=== PATIENT | male | born 1955 | race Caucasian/White ===

== ENCOUNTER → 2017-12-21 | Outpatient (CLI) | payer BC | LOC: BMCIMAGING 08:16 | PROVIDERS: ATTEND Physician Assistant | DX: M22.8X2 Other disorders of patella, left knee (principal) ==

== ENCOUNTER → 2018-07-06 | Outpatient (CLI) | payer BC | LOC: BMCIMAGING 16:27 | PROVIDERS: ATTEND Physician Assistant | DX: M22.2X1 Patellofemoral disorders, right knee (principal) ==

== ENCOUNTER 2018-09-08 13:56 | Inpatient (IN) | payer BC ==
--- NOTE | 2018-09-08 15:05 | EDPHY ---
H & P Time Seen by Provider: 09/08/18 15:04 HPI/ROS: CHIEF COMPLAINT: I feel terrible HISTORY OF PRESENT ILLNESS: Patient had urethral stricture repair 3 weeks ago [facility], still has a Cristina catheter. He is trying to get back to his normal activities and this past week on Monday wore a leg bag for about 6 hr at a social function. Over the last 24 hr he has been very restless, woke up today with soreness in his lower back in both hips radiating to both legs. He says he"feels terrible "and right now says he feels hot like he has a fever. Urine is slightly darker in color. Symptoms moderate to severe. Not associated with sore throat or headache, vomiting or diarrhea. He does feel like his urine isn't draining completely into the catheter. REVIEW OF SYSTEMS: Eye: no change in vision ENT: no sore throat Cardiac: no chest pain or syncope Pulmonary: Not short of breath, a little bit of a residual cough from a cold from 3 weeks ago. Abdomen: no vomiting, diarrhea, abdominal pain Musculoskeletal: no back pain Skin: no rash Neuro: no headache Constitutional: HPI : HPI A comprehensive 10 point review of systems is otherwise negative aside from elements mentioned in the history of present illness. PAST MEDICAL HISTORY: Urethral stricture repair, hypertension, nonobstructive coronary disease, GERD Social history: Nonsmoker General Appearance: Alert and conversant, cooperative. Eyes: No scleral icterus. ENT, Mouth: Normal mucous membranes. Respiratory: Normal respiratory effort, breath sounds equal, lungs are clear to auscultation. Cardiovascular: Regular rate and rhythm. Tachycardic. Gastrointestinal: Abdomen is soft and non tender. No suprapubic tenderness. Catheter in place. Neurological: Alert, face symmetric, normal motor and sensory in extremities. Skin: Warm and dry, no rashes. No zoster. Musculoskeletal: Has some mild bilateral CVA tenderness. Compartments in both legs are soft. Psychiatric: Not agitated. Emergency Department course/MDM: Patient's urinalysis reviewed has pyuria and bacteriuria. Likely UTI, catheter associated after surgery 3 weeks ago. Urine culture, IV fluids for heart rate 108, IV antibiotics, hospitalist admission. Bladder scan shows his catheter is functioning, bladder is drained. 1612: SIRS criteria but not severe sepsis. Smoking Status: Never smoked Constitutional: Initial Vital Signs Temperature (C) 36.9 C 09/08/18 14:01 Heart Rate 108 H 09/08/18 14:01 Respiratory Rate 18 09/08/18 14:01 Blood Pressure 202/92 H 09/08/18 14:01 O2 Sat (%) 95 09/08/18 14:01 O2 Delivery Mode Room Air Allergies/Adverse Reactions: No Known Allergies Allergy (Verified 11/03/16 11:16) Home Medications: Medication Instructions Recorded Lisinopril [Zestril 10 mg (*)] 30 mg PO DAILY 11/03/16 Omeprazole 20 mg PO DAILY 11/03/16 Simvastatin [Zocor] 20 mg PO HS 11/03/16 Acetaminophen [Tylenol 325mg (*)] 650 mg PO Q6 PRN 09/08/18 Aspirin [Aspirin 81mg (*)] 81 mg PO DAILY 09/08/18 Ibuprofen [Motrin (*)] 400 mg PO Q6 PRN 09/08/18 LORazepam [Ativan (*)] 0.5 mg PO DAILY PRN 09/08/18 Metoprolol Succinate Xr [Toprol Xl 25 mg PO HS 09/08/18 25 mg (*)] Multivitamins [Multivitamin (*)] 1 tab PO DAILY 09/08/18 Oxybutynin Chloride [Ditropan 5mg 5 mg PO TID 09/08/18 (RX)] Tamsulosin HCl [Flomax 0.4 MG (*)] 0.4 mg PO HS 09/08/18 Medical Decision Making Differential Diagnosis: Differential considered including but not limited to UTI, rhabdomyolysis, viral syndrome, vascular problem Consult/Admit Bed Type: [place] [address] - Data Points Laboratory Results: 09/08/18 14:05 Urine Color YELLOW Urine Appearance MODERATELY TURBID Urine pH 5.0 (5.0-7.5) Ur Specific [place] 1.014 (1.002-1.030) Urine Protein 1+ H (NEGATIVE) Urine Ketones NEGATIVE (NEGATIVE) Urine Blood 3+ H (NEGATIVE) Urine Nitrate POSITIVE H (NEGATIVE) Urine Bilirubin NEGATIVE (NEGATIVE) Urine Urobilinogen NEGATIVE EU EU (0.2-1.0) Ur Leukocyte Esterase 3+ H (NEGATIVE) Urine RBC 50-182 /hpf H /hpf (0-3) Urine WBC 50-182 /hpf H /hpf (0-3) Ur Epithelial Cells NONE SEEN /lpf /lpf (NONE-1+) Urine Bacteria 2+ /hpf H /hpf (NONE SEEN) Urine Mucus TRACE /lpf /lpf (NONE-1+) Urine Glucose NEGATIVE (NEGATIVE) Medications Given: Acetaminophen (Tylenol) 650 mg PO Q4HRS PRN PRN Reason: Pain, Mild/Fever, Can Take PO Stop: 03/07/19 16:26 Last Admin: 09/08/18 16:58 Dose: 650 mg Vancomycin/Sodium Chloride (Vancomycin 1 Gm (Premix)) 250 mls @ 250 mls/hr IV Q12H JORDAN PRN Reason: Protocol Stop: 10/08/18 16:29 Last Admin: 09/08/18 16:59 Dose: 250 mls Sodium Chloride (Ns) 1,000 mls @ 125 mls/hr IV CONT JORDAN Stop: 09/09/18 00:29 Last Admin: 09/08/18 16:59 Dose: 1,000 mls Oxycodone HCl (Oxycodone Ir) 5 - 10 mg PO Q3HRS PRN PRN Reason: Pain, Severe Able to Take PO Stop: 09/18/18 16:26 Last Admin: 09/08/18 18:06 Dose: 5 mg Discontinued Medications Ceftriaxone Sodium/Dextrose (Rocephin 1 Gm (Premix)) 50 mls @ 100 mls/hr IV EDNOW ONE PRN Reason: Protocol Stop: 09/08/18 15:50 Last Admin: 09/08/18 15:46 Dose: 50 mls Sodium Chloride (Ns) 2,800 mls @ 5,600 mls/hr 30 ml/kg infuse over 30 min ( 2800 ml) IV EDNOW ONE PRN Reason: Protocol Stop: 09/08/18 15:50 Last Admin: 09/08/18 15:45 Dose: 2,800 mls Lorazepam (Ativan Injection) 1 mg IVP EDNOW ONE Stop: 09/08/18 15:48 Last Admin: 09/08/18 15:47 Dose: 1 mg Departure - Departure Disposition: [facility] Inpatient Acute Clinical Impression: Urinary tract infection Qualifiers: Urinary tract infection type: catheter-associated UTI Indwelling urinary catheter type: indwelling urethral catheter Encounter type: initial encounter Qualified Code(s): T83.511A - Infection and inflammatory reaction due to indwelling urethral catheter, initial encounter Condition: Good
[2018-09-08] MEDS ORDERED: NS 2,800 ML IV ONE (15:21)
[2018-09-08] MEDS ORDERED: LORazepam 2 MG/ML INJ ONE (15:43)
[2018-09-08] MEDS ORDERED: LORazepam 2 MG/ML INJ IVP ONE (15:47)
[2018-09-08 15:54] LABS: PLATELET COUNT 293 10^3/uL (150-400)
[2018-09-08 16:01] LABS: INR 0.98 (0.83-1.16); PROTIME(PATIENT) 13.2 SEC (12.0-15.0)
[2018-09-08 16:27] LABS: CREATINE KINASE 84 IU/L (0-224)
[2018-09-08] MEDS ORDERED: TEMAZEPAM 15 MG CAP PO PRN (16:27)
[2018-09-08] MEDS ORDERED: ONDANSETRON 4 MG/2 ML VIAL IVP PRN (16:27)
[2018-09-08] MEDS ORDERED: oxyCODONE IR 5 MG TAB PO PRN (16:27)
[2018-09-08] MEDS ORDERED: ONDANSETRON DISINTEGRATING 4 MG TAB PO PRN (16:27)
[2018-09-08] MEDS ORDERED: ACETAMINOPHEN 325 MG TAB PO PRN (16:29)
[2018-09-08] MEDS ORDERED: LORazepam 0.5 MG TAB PO PRN (16:29)
[2018-09-08] MEDS ORDERED: NS 1,000 ML IV SCH (16:30)
[2018-09-08] MEDS: ACETAMINOPHEN 325 MG TAB PO PRN ×2 (16:58→21:01)
[2018-09-08] MEDS: VANCOMYCIN HCL/NORMAL SALINE 250 ML IV SCH (16:59)
--- NOTE | 2018-09-08 18:11 | GHP ---
DATE OF ADMISSION: 09/08/2018 The patient is a pleasant 63-year-old gentleman with hypertension and hyperlipidemia, who had a urethral stricture repair at [facility] on August 17, which was about 3 weeks ago. He has had an indwelling Cristina since. It sounds like this was a fairly invasive procedure with a perineal incision. He has been doing reasonably well since surgery, and this week he noticed more discomfort getting worse throughout the week with some back pain. This morning he woke up just with malaise and weakness and achiness all over. He was not febrile. He has been taking scheduled Tylenol and ibuprofen. He has noted some purulence around his urethra. His scrotum is uncomfortable, but has not gotten worse. He has noticed no foul smelling drainage in his underwear. No drainage from his scrotal incision. He is concerned that his catheter is not draining completely. He had a bladder scan in the emergency department that demonstrated complete emptying. Earlier in the week, he wore a leg bag for about 6 hours at a social function and has been feeling poorly since. REVIEW OF SYSTEMS: Complete 10-point review of systems conducted, negative except as noted in the HPI. PAST MEDICAL HISTORY: 1. Urethral stricture repair (urethral stricture as a result of a 24-Maced[place] Cristina placed at some point as part of a urologic workup). 2. Hypertension. 3. Nonobstructive coronary disease. 4. GERD. SOCIAL HISTORY: No tobacco. 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 Lives in [place]. present at the bedside. FAMILY HISTORY: Notable for prostate problems in his brothers and father. ALLERGIES: No known drug allergies. HOME MEDICATIONS: Ibuprofen, Tylenol, aspirin, lisinopril, lorazepam once daily , Toprol-XL, multivitamin, omeprazole, oxybutynin, simvastatin, tamsulosin. PHYSICAL EXAMINATION: VITAL SIGNS: Temp 37, blood pressure 134/72, pulse 91, breathing 16 times a minute, 96% on room air. GENERAL: No acute distress. HEENT: Sclerae are anicteric. Oropharynx is clear. Mucous membranes are moist. NECK: Supple without lymphadenopathy or JVD. LUNGS: Clear to auscultation bilaterally. HEART: S1, S2. ABDOMEN: Soft, nontender, nondistended. GENITOURINARY: He has a small Cristina in his urethra. There is some purulence around it. His scrotal and perineal incision is clean, dry, and intact without fluctuance, without drainage, and without erythema or odor. EXTREMITIES: His lower extremities are without edema. Calves are nontender. SKIN: Without rash. NEUROLOGIC: Nonfocal. Sodium 135, potassium 4.7, chloride 101, bicarb 24, BUN 18, creatinine 1.0, glucose 102. CK is 84. UA shows 3+ leukocyte esterase, 50-182 red cells and white cells. Venous lactate is normal at 1.1. Coags are normal. White count is 18 with a left shift, hematocrit 45, platelets are 293,000. There is no imaging. I have discussed the case with Dr. Ghulam Feldman. ASSESSMENT/PLAN: A 63-year-old gentleman with catheter-associated urinary tract infection from urethral stricture surgery. 1. Urinary tract infection. The patient has an indwelling catheter. Typically , it would be appropriate to remove, but it is definitely not appropriate to do so in this case. He has followup with his urologist in 3 days for a scheduled catheter removal. The plan will be to treat through it. We will give him ceftriaxone. Given his indwelling Cristina, I will add vancomycin. I have considered resistant gram negative. He was in the hospital only overnight and has had limited interaction with the healthcare system, so will not broaden to pseudomonal or resistant gram-negative coverage at this time. 2. Sepsis, leukocytosis. Source of infectious symptoms. As above. 3. Recent urologic surgery. The patient does not appear to have a wound infection. Will follow. I will notify [facility], urology division, that the patient is here. 4. Hypertension. Continue his beta jay. Hold his angiotensin-converting enzyme inhibitor. 5. Pain. As-needed oxycodone. 6. Prophylaxis. Low-molecular heparin. 7. Disposition. Inpatient status. /[id number]/MODL MTDD
[2018-09-08] MEDS: METOPROLOL SUCCINATE XR 25 MG TAB PO SCH (21:02)
[2018-09-08] MEDS: OXYBUTYNIN CHLORIDE 5 MG TAB PO SCH (21:02)
[2018-09-08] MEDS: ATORVASTATIN CALCIUM 10 MG TAB PO SCH (21:02)
[2018-09-08] MEDS: TAMSULOSIN HCL 0.4 MG CAP PO SCH (21:02)
[2018-09-08] MEDS: LORazepam 0.5 MG TAB PO PRN (21:04)
[2018-09-08] MEDS: IBUPROFEN 200 MG TAB PO PRN (21:52)
[2018-09-09] MEDS: IBUPROFEN 200 MG TAB PO PRN ×3 (01:26→20:28)
[2018-09-09] MEDS: VANCOMYCIN HCL/NORMAL SALINE 250 ML IV SCH ×2 (04:02→16:49)
[2018-09-09 05:14] LABS: PLATELET COUNT 233 10^3/uL (150-400)
--- NOTE | 2018-09-09 07:11 | PDMN ---
Medical Necessity Medical necessity: MCG: UTI M300 A-2 days: recent ureteral stricture repair- indwelling catheter, now with malaise, weakness , achiness, purulence around urethra, back pain, also with leukocytosis, HTN, anticipate > 2 MN ongoing med nec care further monitoring and tx
[2018-09-09] MEDS: PANTOPRAZOLE SODIUM 40 MG TAB PO SCH (08:31)
[2018-09-09] MEDS: ASPIRIN 81 MG CHEWABLE TAB PO SCH (08:31)
[2018-09-09] MEDS: MULTIVITAMINS 1 EACH TAB PO SCH (08:31)
[2018-09-09] MEDS: ACETAMINOPHEN 325 MG TAB PO PRN ×3 (08:31→21:54)
[2018-09-09] MEDS: OXYBUTYNIN CHLORIDE 5 MG TAB PO SCH ×3 (08:31→20:28)
[2018-09-09] MEDS: ENOXAPARIN 40 MG/0.4 ML SYR SC SCH (08:31)
--- NOTE | 2018-09-09 09:36 | ASMTCMCOM ---
CM Note CM Note Notes: Patient admitted via ED with malaise. S/P urethral stricture repair 3 weeks ago. Admitted for signs of sepsis. Normally lives independent with his . CM to follow for needs. Plan: TBD Date Signed: 09/09/2018 09:35 AM Electronically Signed By:Rohini Raygoza RN
[2018-09-09] MEDS ORDERED: guaiFENesin/CODEINE PHOS 10 ML UDCUP PO ONE (18:08)
[2018-09-09] MEDS: ATORVASTATIN CALCIUM 10 MG TAB PO SCH (20:28)
[2018-09-09] MEDS: BENZONATATE 100 MG CAP PO PRN (20:28)
[2018-09-09] MEDS: METOPROLOL SUCCINATE XR 25 MG TAB PO SCH (20:28)
[2018-09-09] MEDS: TAMSULOSIN HCL 0.4 MG CAP PO SCH (20:28)
[2018-09-10] MEDS: ACETAMINOPHEN 325 MG TAB PO PRN ×3 (03:14→21:38)
[2018-09-10 04:10] LABS: PLATELET COUNT 214 10^3/uL (150-400)
[2018-09-10] MEDS: VANCOMYCIN HCL/NORMAL SALINE 250 ML IV SCH (04:34)
--- NOTE | 2018-09-10 05:08 | SOAPPROG ---
SOAP Progress Note Assessment/Plan: 1. sepsis, presumed urinary source s/p surgery [address] [facility], green in place -vanco/rocephin -bd cx pending -u cx GNR -102 temp last nt -wbc slightly trending down -if temp spikes again, will need imaging and urology consult -he has seen Dr Joshua bingham and requests to NOT see her here -discussed possible transfer to [facility] as inpt so his surgeon could see him , he declines at this time 2. HTN -home meds except holding KENDRICK I 3. Hyperlipidemia -home med 4. Diarrhea, on precautions empirically bc of recent inpt admission/abx use -c diff testing ordered Dispo- >48 hours as still febrile and may need further eval including surgical eval DVT prophy lovenox PCP Dr Marichuy Salgado Full code 09/10/18 05:15 Subjective: ROUNDING NOTE 09/09/2018, 130 PM Family in room. Is uncomfortable, soreness in scrotum, hard to sit down. [place] earlier in day, now feeling achy. No n/v/CP. Had a few episodes of diarrhea, c diff ordered, but no further diarrhea/BM to test. Anxious to discharge as has appt with surgeon at [facility] on . Objective: Vital Signs Temp Pulse Resp BP Pulse Ox 98.6 F 76 18 139/74 H 91 L 09/10/18 04:39 09/10/18 03:32 09/10/18 03:32 09/10/18 03:32 09/10/18 03:32 Laboratory Results 09/10/18 04:03 09/10/18 03:34 09/08/18 09/09/18 09/10/18 12:59 11:59 11:59 Intake Total 1020 Output Total 3100 Balance -2080 PT 13.2 SEC (12.0-15.0) 09/08/18 15:38 INR 0.98 (0.83-1.16) 09/08/18 15:38 - Time Spent With Patient Time Spent With Patient: 25 mins - Pending Discharge Pending Discharge Within 24 Hours: No Physical Exam - Physical Exam General Appearance: WD/WN, alert, no apparent distress EENT: PERRL/EOMI Neck: supple Respiratory: lungs clear, normal breath sounds Cardiac/Chest: regular rate, rhythm Abdomen: normal bowel sounds, non-tender, soft Male Genitalia: deferred, other (green in place) Skin: normal color, warm/dry Neuro/Psych: alert, normal mood/affect ICD10 Worksheet Patient Problems: Problems Problem Status Onset Urinary tract infection Acute
[2018-09-10] MEDS: IBUPROFEN 200 MG TAB PO PRN (08:00)
--- NOTE | 2018-09-10 09:10 | HOSPPROG ---
Hospitalist Progress Note Assessment/Plan: 63 yo M w recent urethral reconstruction surgery a/w sepsis, CAUTI 1. sepsis, presumed urinary source s/p surgery [address] [facility], green in place -ceftriaxone dc vanc -bd cx neg thus far -u cx e coli -febrile overnight will formulate plan w outpatient urologist Dr. Abreu [phone] 2. HTN -home meds except holding KENDRICK I 3. Hyperlipidemia -home med 4. Diarrhea, on precautions empirically bc of recent inpt admission/abx use -c diff testing ordered Dispo- >48 hours as still febrile and may need further eval including surgical eval DVT prophy lovenox Subjective: case d/w dr abreu, outpatient urologist Objective: Vital Signs Temp Pulse Resp BP Pulse Ox 37.3 C 84 16 145/77 H 87 L 09/10/18 07:40 09/10/18 07:40 09/10/18 07:40 09/10/18 07:40 09/10/18 07:40 Microbiology 09/09/18 21:56 Respiratory Panel (PCR) - Final Nasal, Sinus - Swab No Organism Detected Laboratory Results 09/10/18 04:03 09/10/18 03:34 09/09/18 09/10/18 09/11/18 05:59 05:59 05:59 Intake Total 2520 Output Total 3500 Balance -980 PT 13.2 SEC (12.0-15.0) 09/08/18 15:38 INR 0.98 (0.83-1.16) 09/08/18 15:38 - Physical Exam Constitutional: no apparent distress, appears nourished Ears, Nose, Mouth, Throat: moist mucous membranes, hearing normal Cardiovascular: regular rate and rhythym, no murmur, rub, or gallop Respiratory: no respiratory distress, no rales or rhonchi Gastrointestinal: normoactive bowel sounds, soft, non-tender abdomen Genitourinary: green in urethra, other (clear urine) Skin: warm, normal color Musculoskeletal: full muscle strength, no muscle tenderness Neurologic: AAOx3 ICD10 Worksheet Patient Problems: Problems Problem Status Onset Urinary tract infection Acute
[2018-09-10] MEDS: OXYBUTYNIN CHLORIDE 5 MG TAB PO SCH ×3 (09:15→21:37)
[2018-09-10] MEDS: ASPIRIN 81 MG CHEWABLE TAB PO SCH (09:15)
[2018-09-10] MEDS: MULTIVITAMINS 1 EACH TAB PO SCH (09:15)
[2018-09-10] MEDS: PANTOPRAZOLE SODIUM 40 MG TAB PO SCH (09:15)
[2018-09-10] MEDS: ENOXAPARIN 40 MG/0.4 ML SYR SC SCH (09:16)
[2018-09-10] MEDS: BENZONATATE 100 MG CAP PO PRN ×2 (15:28→21:37)
--- NOTE | 2018-09-10 15:34 | ASMTCMCOM ---
CM Note CM Note Notes: Patient plan of care reviewed in rounds. Likely to discharge tomorrow and follow up with urology clinic in [facility]. CM available should needs arise. Plan: No Date Signed: 09/10/2018 03:09 PM Electronically Signed By:Rohini Raygoza RN
[2018-09-10] MEDS: TAMSULOSIN HCL 0.4 MG CAP PO SCH (21:37)
[2018-09-10] MEDS: valACYclovir 500 MG TAB PO SCH (21:37)
[2018-09-10] MEDS: METOPROLOL SUCCINATE XR 25 MG TAB PO SCH (21:37)
[2018-09-10] MEDS: LORazepam 0.5 MG TAB PO PRN (21:38)
[2018-09-10] MEDS: ATORVASTATIN CALCIUM 10 MG TAB PO SCH (21:38)
[2018-09-11] MEDS: IBUPROFEN 200 MG TAB PO PRN (00:34)
[2018-09-11 08:08] VITALS: BP 158/88
[2018-09-11] MEDS: OXYBUTYNIN CHLORIDE 5 MG TAB PO SCH (09:30)
[2018-09-11] MEDS: valACYclovir 500 MG TAB PO SCH (09:30)
[2018-09-11] MEDS: PANTOPRAZOLE SODIUM 40 MG TAB PO SCH (09:30)
[2018-09-11] MEDS: MULTIVITAMINS 1 EACH TAB PO SCH (09:30)
[2018-09-11] MEDS: ASPIRIN 81 MG CHEWABLE TAB PO SCH (09:30)
[2018-09-11] MEDS: ENOXAPARIN 40 MG/0.4 ML SYR SC SCH ×2 (09:31→09:37)
--- NOTE | 2018-09-11 09:54 | PDDCSUM ---
Discharge Summary Discharge Summary: Dates of service 09/08-09/11/18 Consultations:none Procedures: none Hospital course by problem: # sepsis, presumed urinary source s/p surgery 3 weeks ago at [facility], green in place -ceftriaxone--while in house, will dc with levofloxacin to complete -bd cx neg -u cx e coli -afebrile overnight patient to f/u with his usual urologist later today, will determine further w /u at that time # urethral stricture: s/p surgical repair 3 weeks ago as above, green in place currently with plans to be seen later today for hopefully green removal # HTN -home meds resumed, held KENDRICK-I initially # Hyperlipidemia -home med # Diarrhea, resolved, c diff testing negative Dispo- dc home f/u with usual urologist > 35 min spent in dc of patient in coordination of care
--- NOTE | 2018-09-11 10:34 | ASMTLACE ---
LACE Length of stay for Answers: 2 days current admission Acuity / Level of Answers: Yes Care: Did the patient have an inpatient admission? Comorbidities - select Answers: Coronary Artery Disease all that apply Other Notes: Recent urethral strictu re repair; HTN; GERD # of Emergency department Answers: 1-2 visits in the last 6 months Score: 9 Date Signed: 09/11/2018 10:33 AM Electronically Signed By:Rohini Raygoza RN
--- NOTE | 2018-09-11 10:35 | ASMTCMCOM ---
CM Note CM Note Notes: Chart reviewed. Patient medically cleared for discharge to home. No needs identified. CM available should needs arise. Plan: DC to home Date Signed: 09/11/2018 10:34 AM Electronically Signed By:Rohini Raygoza RN
--- NOTE | 2018-09-17 09:47 | PQFORM ---
PHYSICIAN QUERY FORM Needs Your Response This query form is being sent to you to assure this patient record is coded properly. 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 Serrano, In reviewing this patients medical record, it is noted in the ER report and H &P patient had the diagnoses of UTI. Noted in ER report patient is status post urethral stricture repair, now with indwelling Cristina catheter, along with patients urinalysis having pyuria and bacteriuria. Dr. Feldman notes in ER report "likely UTI, catheter associated after surgery." Noted in the H&P Dr. Haji diagnosed patient with "Catheter associated urinary tract infection. After study, should the diagnosis of "Catheter associated urinary tract infection" be included in the Discharge Summary? Yes x No~ Clinically Undetermined Other Thank you NOHELIA Irizarry HIM/Coding Dept. [phone] INSTRUCTIONS FOR RESPONSE: Answer question by clicking on the "Edit Document" button. Move cursor to area below the stars. When complete, hit "Save." Click on the "Sign" button, then click "Sign" again. Type in your PIN and hit "Enter." MTDD
== END 2018-09-11 10:16 | disposition home or self-care (01) | DRG 698 ==
LOC: F1N 16:34
PROVIDERS: ADMIT Internal Medicine; ATTEND Internal Medicine
DX: T83.518A Infection and inflammatory reaction due to other urinary catheter, initial encounter (principal); A41.51 Sepsis due to Escherichia coli [E. coli]; N39.0 Urinary tract infection, site not specified; E78.5 Hyperlipidemia, unspecified; R19.7 Diarrhea, unspecified; I10 Essential (primary) hypertension; I25.10 Atherosclerotic heart disease of native coronary artery without angina pectoris; K21.9 Gastro-esophageal reflux disease without esophagitis
CPT/HCPCS: J0696; J1650; J2060; J3370

== ENCOUNTER 2019-03-29 12:36 | Emergency (ER) | payer BC ==
[2019-03-29 13:34] LABS: PLATELET COUNT 230 10^3/uL (150-400)
--- NOTE | 2019-03-29 13:34 | EDPHY ---
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 Sudden onset of binocular double vision at 11:30 a.m.. The double vision was painless and only occurred with both eyes open. When he shot either eye, the diplopia resolved. The symptoms lasted approximately 2-3 minutes and then completely resolved. No headache, neck pain or recent head or neck trauma. No prior similar symptoms. Prior cardiac evaluation in 2012, including cardiac catheterization, revealed mild diffuse CAD. He was placed on lisinopril and a statin at that time. He also takes an aspirin daily. REVIEW OF SYSTEMS: complete 10 point ROS reviewed and is negative except for the noted elements in the HPI Source: Patient - Personal History Current Tetanus/Diphtheria Vaccine: Yes Tetanus Vaccine Date: within the last year or two - Medical/Surgical History Hx Asthma: No Hx Chronic Respiratory Disease: No Hx Diabetes: No Hx Cardiac Disease: Yes Hx Renal Disease: No Hx Cirrhosis: No Hx Alcoholism: No Hx HIV/AIDS: No Hx Splenectomy or Spleen Trauma: No Other PMH: HTN. CAD. GERD. URETHRAL STRICTURE W/ SURGERY. umbilical hernia repair. HSV-oral - Social History Smoking Status: Never smoked - Physical Exam Exam: General Appearance: Alert, pleasant Eyes: XAVIER, 3 mm, no conjunctival pallor or injection, EOMI ENT, Mouth: Mucous membranes moist Neck: Normal inspection Respiratory: Lungs are clear to auscultation Cardiovascular: Regular rate and rhythm, no murmur Gastrointestinal: Abdomen is soft and nontender Neurological: Alert, oriented x3, cranial nerves II through XII intact, motor 5 /5, sensory intact to light touch, normal gait Skin: Warm and dry Extremities: Nontender, no pedal edema Psychiatric: Slightly anxious Constitutional: Initial Vital Signs Temperature (C) 36.7 C 03/29/19 12:41 Heart Rate 78 03/29/19 12:41 Respiratory Rate 16 03/29/19 12:41 Blood Pressure 167/122 H 03/29/19 12:41 O2 Sat (%) 94 03/29/19 12:41 O2 Delivery Mode Room Air Allergies/Adverse Reactions: No Known Allergies Allergy (Verified 03/29/19 12:41) Home Medications: Medication Instructions Recorded Lisinopril [Zestril 10 mg (*)] 30 mg PO DAILY 11/03/16 Omeprazole 20 mg PO DAILY 11/03/16 Simvastatin [Zocor] 20 mg PO HS 11/03/16 Acetaminophen [Tylenol 325mg (*)] 650 mg PO Q6 PRN 09/08/18 Aspirin [Aspirin 81mg (*)] 81 mg PO DAILY 09/08/18 Ibuprofen [Motrin (*)] 400 mg PO Q6 PRN 09/08/18 LORazepam [Ativan (*)] 0.5 mg PO DAILY PRN 09/08/18 Metoprolol Succinate Xr [Toprol Xl 25 mg PO HS 09/08/18 25 mg (*)] Multivitamins [Multivitamin (*)] 1 tab PO DAILY 09/08/18 Oxybutynin Chloride [Ditropan] 5 mg PO TID 09/08/18 Tamsulosin HCl [Flomax 0.4 MG (*)] 0.4 mg PO HS 09/08/18 levOFLOXACIN [Levofloxacin] 750 mg PO DAILY #7 tablet 09/11/18 Medical Decision Making - Diagnostics EKG Interpretation: EKG interpreted by me reveals normal sinus rhythm, no ST or T segment changes. Interpretation: Normal EKG Imaging Results: Imaging Impressions Head MRA 03/29/19 13:34 Impression: Negative MRA of the native of [place] with variant anatomy as above. Results called and discussed with Hailey Walton on 03/29/2019 at 15:47. Imaging: Discussed imaging studies w/ housecalls nurse Radiologist, I viewed and interpreted images myself ED Course/Re-evaluation: 13 30: I consulted Dr. Moody who suggests an MRI/a of the brain. If these tests are normal, the patient can safely be discharged home. Advise follow-up with Neurology and Ophthalmology in the office. MRA results d/w radiologist. At this point, it became apparent that the patient did not receive an MRI of the brain to evaluate for ischemic changes. MRA discussed with the patient. The patient declined to go back to MRI for further evaluation. He clearly understands that I am unable to assess whether he has had a CVA or other pathology. He continues to be asymptomatic and wishes to go home. He will follow up with Neurology in the office. He will return to the emergency department for recurrent symptoms or any concerns. Differential Diagnosis: including but not limited to hypoglycemia, infectious process, electrolyte abnormality, head injury, CVA, and intoxicants. - Data Points Laboratory Results: Laboratory Results 03/29/19 13:19 03/29/19 13:19 03/29/19 03/29/19 03/29/19 13:22 13:19 13:19 WBC 6.35 10^3/uL 10^3/uL (3.80-9.50) RBC 5.32 10^6/uL 10^6/uL (4.40-6.38) Hgb 16.2 g/dL g/dL (13.7-17.5) Hct 48.8 % % (40.0-51.0) MCV 91.7 fL fL (81.5-99.8) MCH 30.5 pg pg (27.9-34.1) MCHC 33.2 g/dL g/dL (32.4-36.7) RDW 13.6 % % (11.5-15.2) Plt Count 230 10^3/uL 10^3/uL (150-400) MPV 11.9 fL H fL (8.7-11.7) Neut % (Auto) 68.8 % % (39.3-74.2) Lymph % (Auto) 21.4 % % (15.0-45.0) [place] % (Auto) 8.8 % % (4.5-13.0) Eos % (Auto) 0.3 % L % (0.6-7.6) Baso % (Auto) 0.2 % L % (0.3-1.7) Nucleat RBC Rel Count 0.0 % % (0.0-0.2) Absolute Neuts (auto) 4.37 10^3/uL 10^3/uL (1.70-6.50) Absolute Lymphs (auto) 1.36 10^3/uL 10^3/uL (1.00-3.00) Absolute Monos (auto) 0.56 10^3/uL 10^3/uL (0.30-0.80) Absolute Eos (auto) 0.02 10^3/uL L 10^3/uL (0.03-0.40) Absolute Basos (auto) 0.01 10^3/uL L 10^3/uL (0.02-0.10) Absolute Nucleated RBC 0.00 10^3/uL 10^3/uL (0-0.01) Immature Gran % 0.5 % % (0.0-1.1) Immature Gran # 0.03 10^3/uL 10^3/uL (0.00-0.10) Sodium 136 mEq/L mEq/L (135-145) Potassium 4.5 mEq/L mEq/L (3.5-5.2) Chloride 101 mEq/L mEq/L (97-110) Carbon Dioxide 24 mEq/l mEq/l (22-31) Anion Gap 11 mEq/L mEq/L (6-14) BUN 16 mg/dL mg/dL (7-23) Creatinine 1.1 mg/dL mg/dL (0.7-1.3) Estimated GFR > 60 Glucose 90 mg/dL mg/dL (70-100) Calcium 9.5 mg/dL mg/dL (8.5-10.4) POC Troponin I 0.01 ng/mL ng/mL (0.00-0.08) Point of Care Test Results: Chemistry 03/29/19 13:22 POC Troponin I 0.01 ng/mL ng/mL (0.00-0.08) Departure - Departure Disposition: Home, Routine, Self-Care Clinical Impression: Transient diplopia Condition: Good Instructions: Diplopia (ED) Additional Instructions: Continue taking aspirin daily. Return for recurrent symptoms or any concerns. Call Dr. Moody' office to make an appointment. Referrals: Marichuy Salgado MD [Primary Care Provider] - As per Instructions Param Moody MD [Medical Doctor] - As per Instructions
[2019-03-29 16:31] VITALS: BP 133/74
--- NOTE | 2019-03-29 20:27 | CPEKG ---
Test Reason : OPEN Blood Pressure : / mmHG Vent. Rate : 071 BPM Atrial Rate : 072 BPM P-R Int : 182 ms QRS Dur : 088 ms QT Int : 374 ms P-R-T Axes : 056 016 032 degrees QTc Int : 407 ms Sinus rhythm Probable left atrial enlargement Minimal ST elevation, anterior leads Confirmed by Hailey Owens ([id number]) on 03/29/2019 8:26:46 PM Referred By: HAILEY OWENS Confirmed By:Hailey Owens
== END 2019-03-29 16:31 | disposition home or self-care (01) ==
DX: H53.2 Diplopia (principal); I10 Essential (primary) hypertension; E78.5 Hyperlipidemia, unspecified
CPT/HCPCS: 84484-ER